=== PATIENT | male | born 1980 | race Caucasian/White ===

== ENCOUNTER 2017-11-08 08:31 | Observation (INO) ==
--- NOTE | 2017-11-08 08:40 | Emergency Department Note ---
Disposition Clinical Impression: Metabolic acidosis DKA, type 1 Qualifiers: Diabetes mellitus complication detail: without coma Qualified Code(s): E10.10 - Type 1 diabetes mellitus with ketoacidosis without coma Disposition: Admitted As Inpatient Condition: Serious Time of Disposition: 10:07 (Dr Abdalla) Nausea/Vomiting/Diarrhea HPI - General Chief complaint: ED Nausea/Vomiting/Diarrhea Stated complaint: VOMITING, HIGH BLOOD SUGARS Time Seen by Provider: 11/08/17 08:39 Source: patient Mode of arrival: ambulatory Limitations: no limitations Nursing Notes Reviewed: Yes Vital Signs Reviewed: Yes - History of Present Illness Pt Subjective Complaint: nausea, vomiting Onset (ago): day(s) (1) Description of emesis: food contents, watery Number of episodes of emesis: 10 Associated Abdominal Pain: No Improves with: nothing Worsens with: eating, vomiting Context: other (Patient has a history of diabetes type 1 on insulin pump. The day before he attended a cookout but denies anybody else having similar complaints. He states in the last 24 hours he has been unable to tolerate fluids or solid food. He also has increasing urination.) Associated symptoms: Reports: fever/chills, loss of appetite, nausea/vomiting, weakness. Denies: myalgias, chest pain, cough, diaphoresis, headaches, malaise , rash, dysuria, shortness of breath, syncope - Related Data Home Medications Medication Instructions Recorded Confirmed Esomeprazole Magnesium [Nexium] 20 mg PO DAILY 07/07/15 11/08/17 Losartan [Cozaar] 50 mg PO DAILY 07/07/15 11/08/17 Lovastatin [Mevacor] 10 mg PO HS 07/07/15 11/08/17 Insulin ASPART [Novolog] 0 unit SQ DAILY 01/15/16 11/08/17 Allergies Allergy/AdvReac Type Severity Reaction Status Date / Time No Known Allergies Allergy Verified 06/03/17 09:38 All systems ED: reviewed and negative except as stated. Past Medical History - Past Medical History Medical history: Reports: diabetes, hyperlipidemia, hypertension Psychiatric history: Reports: no psych history - Social History Smoking Status: Never smoker Smokeless Tobacco Status: Yes Alcohol use: Reports: none Drug use: Reports: none Physical Exam - General Limitations: no limitations, language barrier General appearance: alert, in distress - Head Head exam: atraumatic, normocephalic - Eye Eye exam: Present: normal appearance, PERRL, EOMI. Absent: scleral icterus - ENT ENT exam: normal exam, mucous membranes dry - Neck Neck exam: Present: normal inspection, full ROM, trachea midline. Absent: meningismus - Chest Chest inspection: Present: normal inspection, symmetric chest wall rise - Respiratory Respiratory exam: Present: normal lung sounds bilaterally - Cardiovascular Cardiovascular exam: Present: tachycardia, normal heart sounds - Abdominal Exam Abdominal exam: Present: soft, Non-Tender, normal bowel sounds - Extremities Exam Extremities exam: Present: normal inspection, full ROM. Absent: pedal edema - Neurological Exam Neurological exam: Present: alert, oriented X3 - Skin Skin exam: Present: warm, dry, intact Course - Reevaluation(s) Reevaluation #1: Tachycardia mildly improve from 140s to upper 120s, blood pressure stable at 108 /53, the patient has received approximately 2 L of IV fluid normal saline. He will be changed to normal saline 500 and was per hour and will institute insulin drip. Results were discussed with his . He was given Ativan 0.5 mg secondary to anxiety. Time: 10:04 - Consultations Time: 09:50 (Dr Abdalla) Vital Signs Temperature 97.8 F 11/08/17 08:35 Pulse Rate 139 11/08/17 08:35 Respiratory Rate 18 11/08/17 08:35 Blood Pressure 127/67 11/08/17 08:35 O2 Sat by Pulse Oximetry 96 11/08/17 08:35 Temperature 98.4 F 11/08/17 15:34 Pulse Rate 130 11/08/17 15:34 Respiratory Rate 30 11/08/17 15:34 Blood Pressure 117/62 11/08/17 15:34 O2 Sat by Pulse Oximetry 96 11/08/17 15:34 Oxygen Delivery Oxygen Delivery Room Air Nausea/Vomiting/Diarrhea - [facility] Narrative Medical decision making narrative: Lab and diagnostic findings suggestive of diabetic ketoacidosis and severe dehydration. The patient received approximately 2 L of IV fluid in the ED and insulin drip was initiated after potassium level was received. The patient was stable hemodynamically throughout the ED course with no changes in mental status. There is no clinical suspicion for infectious etiology contributing to his current presentation. Case was discussed with hospitalist and will admit the patient for further stabilization. Patient and family were informed of current results and are amenable with current disposition and plan. - Differential Diagnosis Likely: food poisoning, gastroenteritis, drug-induced nausea and vomitting, dehydration - Medical Records Medical records reviewed: Yes I reviewed the patient's medical records. - Lab Data Lab results reviewed: Yes I reviewed the patient's lab results. Result diagrams: 11/08/17 09:00 11/08/17 12:30 Lab Results 11/08/17 11/08/17 11/08/17 Range/Units 09:00 09:00 09:00 WBC 14.4 H (4.3-11.1) K/mcL RBC 4.47 (4.19-5.50) M/mcL Hgb 14.0 (12.9-16.9) g/dL Hct 45.9 (37.5-50.1) % MCV 102.7 H (83.0-100.0) fL MCH 31.3 (28.0-33.3) pg MCHC 30.5 L (31.6-35.5) g/dL RDW 13.2 (11.5-14.5) % Plt Count 227 (140-400) K/mcL MPV 10.1 (9.4-12.4) fL Immature Gran % 0.6 (0-4) % Seg Neutrophils % 89.2 % Lymphocytes % 4.5 % Monocytes % 5.6 % Eosinophils % 0.0 % Basophils % 0.1 % Neutrophils # 12.8 H (1.6-8.9) K/mcL Lymphocytes # 0.7 (0.6-4.6) K/mcL Monocytes # 0.8 (0.0-1.3) K/mcL Eosinophils # 0.0 (0.0-0.6) K/mcL Basophils # 0.0 (0.0-0.2) K/mcL Sample Site ABG pH (7.32-7.45) pH Units ABG pCO2 (35-45) mmHg ABG pO2 (85-104) mmHg ABG HCO3 (21-27) mEq/L ABG Total CO2 (20-26) mEq/L ABG O2 Saturation (95-98) % ABG Base Excess (-2 to 3) mEq/L Bakari Test Inspired O2 (1-15=lpm so50-423=%) Sodium 130 L (136-145) mEq/L Potassium 5.0 (3.5-5.1) mEq/L Chloride 81 L (98-107) mEq/L Carbon Dioxide 11 L (23-29) mEq/L BUN 47 H (6-20) mg/dL Creatinine 2.09 H (0.70-1.30) mg/dL Est GFR ( Amer) 44 L (> 60) Est GFR (Non-Af Amer) 36 L (> 60) BUN/Creatinine Ratio 22 (6-26) Glucose 931 H* (70-105) mg/dL Calculated Osmolality 329 H (280-300) Lactic Acid (0.5-2.2) mmol/L Calcium 9.3 (8.6-10.3) mg/dL Total Bilirubin 0.8 (0.3-1.0) mg/dL AST 16 (13-39) Units/L ALT 18 (7-52) Units/L Alkaline Phosphatase 84 (34-104) Units/L Serum Total Protein 7.7 (6.4-8.9) g/dL Albumin 4.4 (3.5-5.7) g/dL Globulin 3.3 (2.4-3.5) g/dL Albumin/Globulin Ratio 1.3 (1.1-2.2) Beta-Hydroxybutyric Acd (0.02-0.27) mmol/L Urine Color Yellow (Yellow) Urine Clarity Clear (Clear) Urine pH 5.0 (5.0-8.0) pH Units Ur Specific [place] 1.010 (1.010-1.025) Urine Protein Negative (Neg-Trace) mg/dL Urine Glucose (UA) 500 H (Normal) mg/dL Urine Ketones >=160 H (Negative) mg/dL Urine Blood Negative (Negative) Urine Nitrite Negative (Negative) Urine Bilirubin Small H (Negative) Urine Urobilinogen Normal (Normal) mg/dL Ur Leukocyte Esterase Negative (Negative) Ur Culture Indicated? NO (NO) 11/08/17 11/08/17 11/08/17 Range/Units 09:00 09:00 09:23 WBC (4.3-11.1) K/mcL RBC (4.19-5.50) M/mcL Hgb (12.9-16.9) g/dL Hct (37.5-50.1) % MCV (83.0-100.0) fL MCH (28.0-33.3) pg MCHC (31.6-35.5) g/dL RDW (11.5-14.5) % Plt Count (140-400) K/mcL MPV (9.4-12.4) fL Immature Gran % (0-4) % Seg Neutrophils % % Lymphocytes % % Monocytes % % Eosinophils % % Basophils % % Neutrophils # (1.6-8.9) K/mcL Lymphocytes # (0.6-4.6) K/mcL Monocytes # (0.0-1.3) K/mcL Eosinophils # (0.0-0.6) K/mcL Basophils # (0.0-0.2) K/mcL Sample Site R Brach ABG pH 7.26 L (7.32-7.45) pH Units ABG pCO2 25 L (35-45) mmHg ABG pO2 106 H (85-104) mmHg ABG HCO3 11 L (21-27) mEq/L ABG Total CO2 12 L (20-26) mEq/L ABG O2 Saturation 97 (95-98) % ABG Base Excess -14 L (-2 to 3) mEq/L Bakari Test Positive Inspired O2 21.0 (1-15=lpm ch86-348=%) Sodium (136-145) mEq/L Potassium (3.5-5.1) mEq/L Chloride (98-107) mEq/L Carbon Dioxide (23-29) mEq/L BUN (6-20) mg/dL Creatinine (0.70-1.30) mg/dL Est GFR ( Amer) (> 60) Est GFR (Non-Af Amer) (> 60) BUN/Creatinine Ratio (6-26) Glucose (70-105) mg/dL Calculated Osmolality (280-300) Lactic Acid 5.0 H* (0.5-2.2) mmol/L Calcium (8.6-10.3) mg/dL Total Bilirubin (0.3-1.0) mg/dL AST (13-39) Units/L ALT (7-52) Units/L Alkaline Phosphatase (34-104) Units/L Serum Total Protein (6.4-8.9) g/dL Albumin (3.5-5.7) g/dL Globulin (2.4-3.5) g/dL Albumin/Globulin Ratio (1.1-2.2) Beta-Hydroxybutyric Acd > 2.00 H (0.02-0.27) mmol/L Urine Color (Yellow) Urine Clarity (Clear) Urine pH (5.0-8.0) pH Units Ur Specific [place] (1.010-1.025) Urine Protein (Neg-Trace) mg/dL Urine Glucose (UA) (Normal) mg/dL Urine Ketones (Negative) mg/dL Urine Blood (Negative) Urine Nitrite (Negative) Urine Bilirubin (Negative) Urine Urobilinogen (Normal) mg/dL Ur Leukocyte Esterase (Negative) Ur Culture Indicated? (NO) - Radiology Data Radiology results reviewed: Yes I reviewed the patient's radiology results. Chest X-Ray 11/08/17 12:36 IMPRESSION: Normal chest. D/ / 11/08/2017 14:18:42 Alex Erickson MD / [facility] Interpreting Provider: Alex Erickson MD - EKG Data Rate: tachycardia Rhythm: NSR [place]/QRS: normal Interpretation: normal EKG, nonspecific ST-T wave changes Critical Care Time Critical Care Time: Yes Total Critical Care Time: 90 Attestation: Critical care performed: Time is exclusive of separately billable procedures. Time includes: direct patient care, patient reassessment, coordination of patient care, interpretation of data (laboratory data, radiology data, and respiratory data), review of patient's medical records, medical consultation and documentation of patient care. Procedures included in critical care time: Procedures excluded from critical care time:
[2017-11-08] MEDS: 0.9 % Sodium Chloride 1,000 ML IVC SCH ×2 (09:00→09:25)
[2017-11-08] MEDS ORDERED: Metoclopramide 10 MG/2 ML VIAL IVP ONE (09:04)
[2017-11-08 09:07] LABS: Bilirubin,Urine Small (Negative); Blood,Urine Negative (Negative); Clarity,Urine Clear (Clear); Color,Urine Yellow (Yellow); Glucose,Urine (UA) 500 mg/dL (Normal); Ketones,Urine >=160 mg/dL (Negative); Leukocyte Esterase,Urine Negative (Negative); Nitrite,Urine Negative (Negative); Protein,Urine Negative (Neg-Trace); Urobilinogen,Urine Normal (Normal)
[2017-11-08 09:15] LABS: Basophils % 0.1 %; Hematocrit 45.9 % (37.5-50.1); Immature Granulocytes % 0.6 % (0-4); Lymphocytes # 0.7 K/mcL (0.6-4.6); Lymphocytes % 4.5 %; Mean Corpuscular HGB Conc 30.5 g/dL (31.6-35.5); Mean Corpuscular Hemoglobin 31.3 pg (28.0-33.3); Mean Corpuscular Volume 102.7 fL (83.0-100.0); Mean Platelet Volume 10.1 fL (9.4-12.4); Monocytes # 0.8 K/mcL (0.0-1.3); Monocytes % 5.6 %; Platelet Count 227 K/mcL (140-400); Red Blood Count 4.47 M/mcL (4.19-5.50); Red Cell Distribution Width 13.2 % (11.5-14.5); Segmented Neutrophils % 89.2 %
[2017-11-08 09:18] LABS: Neutrophils # 12.8 K/mcL (1.6-8.9)
[2017-11-08 09:28] LABS: ABG Base Excess -14 mEq/L (-2 to 3); ABG HCO3 11 mEq/L (21-27); ABG Oxygen Saturation 97 % (95-98); ABG PCO2 25 mmHg (35-45); ABG PH 7.26 pH Units (7.32-7.45); ABG PO2 106 mmHg (85-104); ABG TCO2 12 mEq/L (20-26)
[2017-11-08] MEDS ORDERED: *HR* LORazepam 2 MG/ML VIAL IVP ONE (09:28)
[2017-11-08] MEDS ORDERED: Insulin Human Regular 100 UNIT in 0.9 % Sodium Chloride 100 ML IVC SCH ×2 (09:45→11:43)
[2017-11-08 09:55] LABS: Albumin 4.4 g/dL (3.5-5.7); Albumin/Globulin Ratio 1.3 (1.1-2.2); Bilirubin,Total 0.8 mg/dL (0.3-1.0); Calcium 9.3 mg/dL (8.6-10.3); Globulin 3.3 g/dL (2.4-3.5); Total Protein 7.7 g/dL (6.4-8.9)
[2017-11-08] MEDS ORDERED: 0.9 % Sodium Chloride 1,000 ML IVC SCH ×3 (10:00→11:43)
[2017-11-08] MEDS ORDERED: Acetaminophen 325 MG TABLET PO PRN (11:43)
[2017-11-08] MEDS ORDERED: Naloxone 0.4 MG/ML INJ IVP PRN (11:43)
[2017-11-08] MEDS ORDERED: Insulin Human Regular 15 UNIT in 0.9 % Sodium Chloride 10 ML IV ONE ×3 (14:14→15:15)
--- NOTE | 2017-11-08 14:26 | Internal Med History&Physical ---
Date of Encounter: 11/08/17 Time of Encounter: 14:00 Assessment and Plan (1) DKA, type 1 Current visit: Yes Status: Acute He has been started on IV fluids and insulin drip. Blood sugars will be monitored regularly. Qualifiers: Diabetes mellitus complication detail: without coma Qualified Code(s): E10.10 - Type 1 diabetes mellitus with ketoacidosis without coma (2) Macrocytosis Current visit: Yes Status: Acute We will order workup. (3) Acute renal insufficiency Current visit: Yes Status: Acute We will give IV fluids and monitor renal indices. Internal Medicine - H&P: HPI Chief complaint: Vomiting, DKA Admitted From: Emergency Dept Plans for Post Hospital Care: Home History of present illness: Mr. Camargo is a 36 year old male who came to emergency room stating he had onset of vomiting the day prior to admission approximately 0900. He reported very frequent episodes of vomiting without visible hematemesis. He has seen a episode of diarrhea. He felt warm and reports feeling soreness in his throat. When he did not improve and felt progressively weaker he came to emergency room and was found to have evidence of DKA. He was admitted to [facility] floor for ongoing care needs. He was diagnosed with DM1 at age 10. He had an insulin pump placed at age 26 which has not been changed. He follows with an lamp tester and inspector at [facility] and was last seen approximately one week ago. He also has a local PCP. Reports checking his blood sugars several times a day. Last episode of DKA was approximately 10 years ago. His endocrine history significant also for hyperlipidemia. He denies thyroid disease. Past Med Surg Social Fam HX - Past Medical History Medical history: diabetes, hyperlipidemia, hypertension Psychiatric history: no psych history - Social History Smoking Status: Never smoker Smokeless Tobacco Status: Yes Alcohol use: none Drug use: none Internal Medicine - H&P: Meds Esomeprazole Magnesium [Nexium] 20 mg PO DAILY 07/07/15 [History] Losartan [Cozaar] 50 mg PO DAILY 07/07/15 [History] Lovastatin [Mevacor] 10 mg PO HS 07/07/15 [History] Insulin ASPART [Novolog] 0 unit SQ DAILY 01/15/16 [History] 3 Allergy/AdvReac Type Severity Reaction Status Date / Time No Known Allergies Allergy Verified 06/03/17 09:38 All Systems PM: A 10-system review of systems was performed and is negative for pertinent findings except as documented above in the HPI. Review of systems: Gen.: He states his weight is stable the past few months Cardiovascular: Has history of hypertension but denies AK heart failure angina DVT or pulmonary embolus Respiratory: He is a lifelong nonsmoker denies chronic lung disease. He reports asthma in childhood. GI: Denies disorders of his liver gallbladder or exocrine pancreas : Denies hematuria or dysuria kidney stones Neurologic: He denies large distribution strokes or seizures. Endocrine: As per history of present illness Hematology/oncology: Denies blood disorders cancers or anemia Psychiatric: He denies anxiety depression or other mental health issues Muscle skeletal: He denies arthritis or gout or other bone joint or muscle disorders. - Constitutional Vitals: Temp Pulse Resp BP Pulse Ox 98.6 F 125 32 102/52 96 11/08/17 12:00 11/08/17 12:00 11/08/17 12:00 11/08/17 12:00 11/08/17 12:00 Exam: General: He is a well-developed well-nourished male lying in bed who appears in no acute distress at present time. HEENT: Head is atraumatic and normocephalic. Eyes: EOMI. There is no scleral icterus. Mouth: Mucosa is dry. Neck: There is no thyromegaly or adenopathy noted. Heart: Regular with rate 120/m. No murmurs or gallops are heard. Lungs: No wheezes or crackles are heard. Abdomen: Soft and nontender. Bowel sounds are diminished. No masses or guarding are noted. Extremities: There is no cyanosis edema or clubbing noted. Dorsalis pedis and posterior tibial pulses are 1-2 over 2 bilaterally. He has excellent capillary refill. Neurologic: Mental status: He is talkative and is a good historian. Cranial nerves: Smile is symmetric. Forehead wrinkles bilaterally. Tongue protrudes midline. EOMI. Motor: There is no pronator drift. Cerebellar: Finger to nose is intact bilaterally. Skin: Warm and dry Internal Med - H&P Results - Labs CBC & Chem 7: 11/08/17 09:00 11/08/17 12:30 Labs: BMP 11/08/17 12:30 Glucose 655 H* - Impressions ITS Impressions Chest X-Ray 11/08/17 12:36 IMPRESSION: Normal chest. D/ / 11/08/2017 14:18:42 Alex Erickson MD / [facility] Interpreting Provider: Alex Erickson MD
[2017-11-08] MEDS: MetroNIDAZOLE 500 MG/100 ML 500 MG/100 ML BAG IVPB SCH ×2 (14:35→21:50)
[2017-11-08] MEDS: cefTRIAXone 1,000 MG in Water for inj. (sterile) 20 ML 10 ML IVP SCH (14:35)
[2017-11-08] MEDS ORDERED: *HR* Propranolol 1 MG/ML VIAL IVP ONE (18:37)
[2017-11-08 18:38] LABS: Basophils % 0.1 %; Hematocrit 36.6 % (37.5-50.1); Hemoglobin 12.1 g/dL (12.9-16.9); Immature Granulocytes % 0.6 % (0-4); Lymphocytes % 8.7 %; Mean Corpuscular HGB Conc 33.1 g/dL (31.6-35.5); Mean Corpuscular Hemoglobin 31.2 pg (28.0-33.3); Mean Corpuscular Volume 94.3 fL (83.0-100.0); Mean Platelet Volume 9.6 fL (9.4-12.4); Monocytes # 1.3 K/mcL (0.0-1.3); Monocytes % 11.5 %; Neutrophils # 8.9 K/mcL (1.6-8.9); Platelet Count 173 K/mcL (140-400); Red Blood Count 3.88 M/mcL (4.19-5.50); Red Cell Distribution Width 13.2 % (11.5-14.5); Segmented Neutrophils % 79.1 %
[2017-11-08 18:44] LABS: BUN/Creatinine Ratio 27 (6-26); Blood Urea Nitrogen 38 mg/dL (6-20); Calcium 7.8 mg/dL (8.6-10.3); Carbon Dioxide 18 mEq/L (23-29); Chloride 97 mEq/L (98-107); Glucose 410 mg/dL (70-105); Magnesium 2.2 mg/dL (1.6-2.6); Osmolality,Calculated 304 (280-300); Phosphorous 2.6 mg/dL (2.7-4.5); Potassium 4.1 mEq/L (3.5-5.1); Sodium 134 mEq/L (136-145); eGFR For African Americans > 60 (> 60); eGFR For Non-African Americans 57 (> 60)
[2017-11-08] MEDS: Ondansetron 4 MG/2 ML VIAL IVP PRN (21:49)
[2017-11-08] MEDS: Mag Hydrox/Al Hydrox/Simeth 30 ML UDC PO PRN (21:49)
[2017-11-08] MEDS: Lactobacillus 1 EACH CAP.SPRINK PO SCH (21:50)
[2017-11-09] MEDS ORDERED: Insulin LISPRO 300 UNITS/3 ML VIAL SQ SCH (00:15)
[2017-11-09] MEDS: MetroNIDAZOLE 500 MG/100 ML 500 MG/100 ML BAG IVPB SCH ×2 (05:18→14:51)
[2017-11-09 05:54] LABS: Basophils % 0.2 %; Hematocrit 37.7 % (37.5-50.1); Hemoglobin 12.2 g/dL (12.9-16.9); Immature Granulocytes % 0.6 % (0-4); Lymphocytes # 0.9 K/mcL (0.6-4.6); Lymphocytes % 6.5 %; Mean Corpuscular HGB Conc 32.4 g/dL (31.6-35.5); Mean Corpuscular Hemoglobin 31.4 pg (28.0-33.3); Mean Corpuscular Volume 96.9 fL (83.0-100.0); Mean Platelet Volume 10.1 fL (9.4-12.4); Monocytes % 6.9 %; Platelet Count 170 K/mcL (140-400); Red Blood Count 3.89 M/mcL (4.19-5.50); Red Cell Distribution Width 13.5 % (11.5-14.5); Segmented Neutrophils % 85.8 %
[2017-11-09] MEDS: Mag Hydrox/Al Hydrox/Simeth 30 ML UDC PO PRN (06:17)
[2017-11-09] MEDS: Ondansetron 4 MG/2 ML VIAL IVP PRN ×2 (06:17→09:05)
[2017-11-09 06:18] LABS: Alanine Aminotransferase 18 Units/L (7-52); Albumin 3.5 g/dL (3.5-5.7); Albumin/Globulin Ratio 1.3 (1.1-2.2); Alkaline Phosphatase 66 Units/L (34-104); Aspartate Amino Transferase 25 Units/L (13-39); BUN/Creatinine Ratio 28 (6-26); Bilirubin,Total 0.6 mg/dL (0.3-1.0); Blood Urea Nitrogen 37 mg/dL (6-20); Calcium 7.9 mg/dL (8.6-10.3); Carbon Dioxide 14 mEq/L (23-29); Chloride 94 mEq/L (98-107); Globulin 2.6 g/dL (2.4-3.5); Glucose 402 mg/dL (70-105); Osmolality,Calculated 296 (280-300); Potassium 4.4 mEq/L (3.5-5.1); Sodium 130 mEq/L (136-145); Total Protein 6.1 g/dL (6.4-8.9); eGFR For African Americans > 60 (> 60); eGFR For Non-African Americans > 60 (> 60)
[2017-11-09] MEDS: Insulin LISPRO 300 UNITS/3 ML VIAL SQ SCH ×2 (08:17→08:43)
[2017-11-09] MEDS: cefTRIAXone 1,000 MG in Water for inj. (sterile) 20 ML 10 ML IVP SCH (08:21)
[2017-11-09] MEDS: Lactobacillus 1 EACH CAP.SPRINK PO SCH (08:23)
[2017-11-09] MEDS ORDERED: Insulin Human Regular 15 UNIT in 0.9 % Sodium Chloride 10 ML IV ONE ×2 (08:32→08:49)
[2017-11-09] MEDS ORDERED: *HR* Dextrose 50 % in Water (Syg) 50 ML SYRINGE IVP PRN (08:57)
[2017-11-09] MEDS ORDERED: Insulin Human Regular 100 UNIT in 0.9 % Sodium Chloride 100 ML IVC SCH ×2 (09:00→09:30)
[2017-11-09 15:47] VITALS: BP 114/67
--- NOTE | 2017-11-09 15:50 | Discharge Summary ---
Orders not resulted at time of discharge: Pending orders 11/08/17 12:40 Culture,Blood [BC] Stat 11/08/17 12:45 Culture,Blood,Additional [BC] Stat 11/09/17 10:56 Culture,Throat [RM] Routine Streptococcus A Rapid Test [RM] Routine Date of Encounter: 11/09/17 Time of Encounter: 11:00 - Discharge Diagnosis (1) DKA, type 1 Priority: Primary Status: Acute Qualifiers: Diabetes mellitus complication detail: without coma Qualified Code(s): E10.10 - Type 1 diabetes mellitus with ketoacidosis without coma (2) Macrocytosis Priority: Secondary Status: Acute (3) Acute renal insufficiency Priority: Secondary Status: Acute Hospital course: Mr. Camargo is a 36 year old male who came to emergency room stating he had onset of vomiting the day prior to admission approximately 0900. He reported very frequent episodes of vomiting without visible hematemesis. He has seen a episode of diarrhea. He felt warm and reports feeling soreness in his throat. When he did not improve and felt progressively weaker he came to emergency room and was found to have evidence of DKA. He was admitted to [facility] for ongoing care needs. Initial orders were written by the emergency room physician. I saw him on November 08 and performed the history and physical. He was started on IV fluids and insulin drip in emergency room. When he arrived to [facility] blood cultures were drawn and he was started on triple antibiotic therapy. WBC count initially improved but rishabh slightly to 14.0 by the following day. Blood sugars improved and insulin drip was discontinued for a few hours. When blood sugars began rising and it was reinstituted. Azotemia improved and creatinine decreased to 1.31 with estimated GFR greater than 60. The patient's requested he be transferred [facility] on November 09. I contacted bed management and arrangements were completed for him to be discharged there for ongoing care needs. - Time Spent with Patient Total time spent providing and/or coordinating discharge services: - Discharge Medications Home Medications: Esomeprazole Magnesium [Nexium] 20 mg PO DAILY 07/07/15 [History] Losartan [Cozaar] 50 mg PO DAILY 07/07/15 [History] Lovastatin [Mevacor] 10 mg PO HS 07/07/15 [History] Insulin ASPART [Novolog] 0 unit SQ DAILY 01/15/16 [History] Allergies/Adverse Reactions: 3 Allergy/AdvReac Type Severity Reaction Status Date / Time No Known Allergies Allergy Verified 06/03/17 09:38 Date of admission: 11/08/17 11:10 Primary care physician: Kun Welch MD - Constitutional Vitals: Temp Pulse Resp BP Pulse Ox 98.3 F 111 20 127/69 95 11/09/17 11:56 11/09/17 11:56 11/09/17 11:56 11/09/17 11:56 11/09/17 11:56 - Patient Status Disposition: Transfer Other Condition: Serious - Discharge Instructions
--- NOTE | 2017-11-10 10:35 | Electrocardiograph Report ---
[address] [address] Test Date: 2017-11-08 Pat Name: Reno Camargo Department: [id number] Room: [facility] Gender: M Black Leather Buffer: [id number] : [id number] Requested By: Davie Kang Order Number: [id number] Reading MD: Nahid Teague DO Measurements Intervals [place] Rate: 147 P: 81 TN: 114 QRS: 93 QRSD: 102 T: 3 QT: 289 QTc: 373 Interpretive Statements SINUS TACHYCARDIA WITH SHORT TN INTERVAL, POSSIBLE ATRIAL FLUTTER BORDERLINE RIGHT AXIS DEVIATION NONSPECIFIC T-WAVE ABNORMALITY Electronically Signed On 11-10-2017 10:33:41 EST by Nahid Teague DO
== END 2017-11-09 17:00 | disposition short-term general hospital (02) ==
LOC: EMEROOPIK 08:31 → INPPIK 08:31
PROVIDERS: ADMIT Internal Medicine; ATTEND Internal Medicine